=== PATIENT | male | born 1950 | race Caucasian/White ===

== ENCOUNTER 2021-11-07 13:52 | Observation (INO) ==
[2021-11-07] MEDS ORDERED: Ondansetron ODT 4 mg TAB 4 MG TAB PO ONE (16:51)
[2021-11-07 17:45] LABS: Urine Appearance Clear; Urine Bilirubin Negative (Negative); Urine Blood Negative (Negative); Urine Color Yellow; Urine Glucose Negative (Negative); Urine Ketones 1+ (Negative); Urine Nitrite Negative (Negative); Urine Protein Negative (Negative); Urine Urobilinogen Negative (Negative)
[2021-11-07 17:59] LABS: ABS Monocytes 0.6 10^3/ul (0-0.8); ABS Neutrophils 8.2 10^3/ul (1.5-7.7); Eosinophil % 0.4 %; Hematocrit 47 % (42-52); Hemoglobin 15.8 g/dL (14.0-18.0); Mean Corpuscular HGB Conc 33 g/dL (31-36); Mean Corpuscular Hemoglobin 29 pg (27-31); Mean Corpuscular Volume 86 fL (80-94); Mean Platelet Volume 7.6 fL (7.4-10.4); Nucleated Red Blood Cells % 0.1; Platelet Count 291 10^3/uL (150-450); Red Blood Count 5.53 10^6 /uL (4.18-5.48); Red Cell Distribution Width 14 % (10-15); White Blood Count 9.9 10^3/uL (3.5-10.8)
[2021-11-07 18:27] LABS: Albumin 4.8 g/dL (3.2-5.2); Albumin/Globulin Ratio 1.8 (1-3); Calcium 10.8 mg/dL (8.6-10.3); Globulin 2.7 g/dL (2-4); Potassium 4.8 mmol/L (3.5-5.0); Total Bilirubin 0.9 mg/dL (0.2-1.0); Total Protein 7.5 g/dL (6.4-8.9); eGFR CKD-EPI 72.9 (>60)
[2021-11-07] MEDS ORDERED: Ondansetron 4 mg VIAL 2 MG/ML 2 ml VIAL IV ONE (19:07)
[2021-11-07] MEDS ORDERED: NS 0.9% 1000 ml BAG 1,000 ML IV ONE (19:07)
[2021-11-07] MEDS ORDERED: fentaNYL 100 mcg/2 ml 50 MCG/ML VIAL IV SLOW PU ONE ×2 (19:11→19:55)
[2021-11-07] MEDS: fentaNYL 100 mcg/2 ml 50 MCG/ML VIAL IV SLOW PU ONE ×2 (19:32→19:33)
[2021-11-07] MEDS ORDERED: fentaNYL 100 mcg/2 ml 50 MCG/ML VIAL ONE (19:43)
[2021-11-07] MEDS ORDERED: Ondansetron 4 mg VIAL 2 MG/ML 2 ml VIAL IV PRN (21:37)
[2021-11-07] MEDS ORDERED: Lactated Ringers 1000 ml BAG 1,000 ML IV SCH ×2 (22:00→23:45)
[2021-11-07] MEDS ORDERED: ceFAZolin 2 GM PREMIX 2 GM/50 ML BAG ONE (23:00)
[2021-11-07] MEDS ORDERED: Famotidine IV 10 MG/ML 2 ml VIAL (20 mg) IV ONE (23:35)
[2021-11-07] MEDS ORDERED: Sodium Citrate/Citric Acid LIQ 15 ML UDC PO ONE (23:35)
[2021-11-07] MEDS ORDERED: Buffered Lidocaine 1% SYRIN 1 ml INTRADERM ONE (23:35)
[2021-11-07] MEDS: Morphine 10 MG/ML VIAL (1 ml) IV PRN ×2 (23:40→23:50)
[2021-11-07] MEDS ORDERED: Morphine 4 MG/ML VIAL (1 ml) ONE (23:41)
[2021-11-07] MEDS ORDERED: Famotidine IV 10 MG/ML 2 ml VIAL (20 mg) ONE (23:44)
[2021-11-08] MEDS ORDERED: Lidocaine 2% PF 5 ML VIAL ONE (00:20)
[2021-11-08] MEDS ORDERED: Propofol 10 MG/ML 20 ML BTL ONE (00:20)
[2021-11-08] MEDS ORDERED: Succinylcholine 200 mg VIAL 20 mg/ml 10 ml VIAL (200 mg) ONE (00:20)
[2021-11-08] MEDS ORDERED: Rocuronium 50 mg VIAL 10 mg/ml 5 ml VIAL (50 mg) ONE (00:20)
[2021-11-08] MEDS ORDERED: fentaNYL 100 mcg/2 ml 50 MCG/ML VIAL ONE ×5 (00:20→03:48)
[2021-11-08] MEDS ORDERED: Bupivacaine 0.25% w/EPI 10 ML SDV ONE (00:27)
[2021-11-08] MEDS ORDERED: Prochlorperazine 5 mg/ml 2 ml VIAL (10 mg) IV PRN (00:30)
[2021-11-08] MEDS ORDERED: Naloxone 0.4 mg VIAL 0.4 mg/ml 1 ml VIAL IV PRN (00:30)
[2021-11-08] MEDS ORDERED: Acetaminophen IV 1 GM/100ML 100 ML IV ONE (00:30)
[2021-11-08] MEDS ORDERED: Sodium Citrate/Citric Acid LIQ 15 ML UDC ONE (00:42)
[2021-11-08] MEDS ORDERED: Labetalol IV 5 MG/ML 20 ml VIAL ONE (01:31)
[2021-11-08] MEDS ORDERED: Sugammadex 500 MG/5 ML 5 ml VIAL IV PUSH ONE (02:35)
[2021-11-08] MEDS ORDERED: Morphine 2 MG/ML SYRINGE IV PRN (03:03)
[2021-11-08] MEDS ORDERED: Morphine 4 MG/ML VIAL (1 ml) ONE (03:08)
[2021-11-08] MEDS: Morphine 4 MG/ML VIAL (1 ml) IV PRN ×2 (03:10→03:21)
[2021-11-08] MEDS: fentaNYL 100 mcg/2 ml 50 MCG/ML VIAL IV PRN ×3 (03:26→03:45)
[2021-11-08] MEDS: ceFOXitin 2 GM IVPREMIX 2 GM/50 ML BAG IVPB SCH ×3 (05:30→22:52)
[2021-11-08] MEDS: Acetaminophen IV 1 GM/100ML 100 ML IV SCH ×3 (11:08→22:17)
[2021-11-09] MEDS: Acetaminophen IV 1 GM/100ML 100 ML IV SCH ×4 (05:07→22:58)
[2021-11-09] MEDS: ceFOXitin 2 GM IVPREMIX 2 GM/50 ML BAG IVPB SCH (05:48)
[2021-11-09 05:53] LABS: Calcium 8.1 mg/dL (8.6-10.3); Potassium 4.4 mmol/L (3.5-5.0); eGFR CKD-EPI 69.8 (>60)
[2021-11-09] MEDS: Lactated Ringers 1000 ml BAG 1,000 ML IV SCH ×2 (09:59→17:15)
[2021-11-09 10:36] LABS: Urine Appearance Cloudy; Urine Bilirubin Negative (Negative); Urine Blood 1+ (Negative); Urine Color Yellow; Urine Glucose Negative (Negative); Urine Ketones Trace (Negative); Urine Nitrite Negative (Negative); Urine Protein 1+(30 mg/dL) (Negative); Urine Specific Gravity 1.031 (1.002-1.030); Urine Urobilinogen Negative (Negative)
[2021-11-09 10:49] LABS: Urine Bacteria Absent (Absent); Urine Red Blood Cell 2+(6-10/hpf) (Absent); Urine White Blood Cell 1+(6-10/hpf) (Absent)
[2021-11-10] MEDS ORDERED: Pantoprazole VIAL 40 MG VIAL IV ONE (03:17)
[2021-11-10] MEDS: Acetaminophen IV 1 GM/100ML 100 ML IV SCH (05:58)
[2021-11-10 11:34] VITALS: BP 144/85
== END 2021-11-10 12:46 | disposition home or self-care (01) ==
LOC: ED 13:52 → AA 13:52 → EDHOLD 13:52 → SSU 11-08 01:00 → OR 11-08 01:00
PROVIDERS: ADMIT Surgery; ATTEND Surgery